=== PATIENT | female | born 1995 | race Caucasian/White ===

== ENCOUNTER 2018-04-26 10:12 | Emergency (ER) | payer MEDICAID, OTHER ==
[~2018-04-26] VITALS: Ht 165.1 cm; Wt 50.0 kg
[2018-04-26 10:29] VITALS: BP 123/78
[2018-04-26] MEDS ORDERED: HYDR-3165 PO (10:55)
--- NOTE | 2018-04-26 10:58 | PHYS DOC ---
Past History Past Medical History: Depression Past Surgical History: No Surgical History Alcohol Use: None Drug Use: None Adult General Chief Complaint Chief Complaint: UPPER EXTREMITY PAIN HPI HPI 23-year-old healthy female presents with right hand pain. She states she punched a wall with the right hand last night. She states she has pain over her right fifth knuckle. She denies any other injuries.[] Review of Systems Review of Systems Constitutional: Denies fever or chills [] Eyes: Denies change in visual acuity, redness, or eye pain [] HENT: Denies nasal congestion or sore throat [] Respiratory: Denies cough or shortness of breath [] Cardiovascular: No additional information not addressed in HPI [] GI: Denies abdominal pain, nausea, vomiting, bloody stools or diarrhea [] : Denies dysuria or hematuria [] Musculoskeletal: Per history of present illness[] Integument: Denies rash or skin lesions [] Neurologic: Denies headache, focal weakness or sensory changes [] Endocrine: Denies polyuria or polydipsia [] All other systems were reviewed and found to be within normal limits, except as documented in this note. Allergies Allergies Allergies Coded Allergies Type Severity Reaction Last Updated Verified ibuprofen Allergy Intermediate 04/26/18 Yes Physical Exam Physical Exam Constitutional: Well developed, well nourished, mild to moderate distress, non- toxic appearance. [] HENT: Normocephalic, atraumatic, bilateral external ears normal, oropharynx moist, no oral exudates, nose normal. [] Eyes: PERRLA, EOMI, conjunctiva normal, no discharge. [] Neck: Normal range of motion, no tenderness, supple, no stridor. [] Cardiovascular:Heart rate regular rhythm, no murmur [] Lungs & Thorax: Bilateral breath sounds clear to auscultation [] Abdomen: Bowel sounds normal, soft, no tenderness, no masses, no pulsatile masses. [] Skin: Warm, dry, no erythema, no rash. [] Back: No tenderness, no CVA tenderness. [] Extremities: Tenderness over the distal aspect of the right fifth metacarpal with deformity consistent with a boxer's fracture. [] Neurologic: Alert and oriented X 3, normal motor function, normal sensory function, no focal deficits noted. [] Psychologic: Depressed affect. [] Current Patient Data Vital Signs Vital Signs Date Time Temp Pulse Resp B/P (MAP) Pulse Ox O2 Delivery O2 Flow Rate FiO2 04/26/18 10:29 98.2 65 18 100 Room Air EKG EKG [] Radiology/Procedures Radiology/Procedures [] Impressions: Right hand x-ray: Boxer's fracture as interpreted by me Course & Med Decision Making Course & Med Decision Making Pertinent Labs and Imaging studies reviewed. (See chart for details) [ED course/procedure: Evaluation reveals a 23-year-old female with right boxer' s fracture. An ulnar gutter OCL splint was placed from the distal aspect of the right forearm distal to her right MCP. After the splint was placed the patient remained neurovascularly intact as checked by me.] Dragon Disclaimer Dragon Disclaimer This electronic medical record was generated, in whole or in part, using a voice recognition dictation system. Departure Departure: Impression: Primary Impression: Gonsalo fracture Disposition: HOME, SELF-CARE Condition: STABLE Referrals: PCP,TALISHA (PCP) BOBBI ACOSTA MD Call Dr. Acosta to arrange outpatient follow-up Patient Instructions: Hand Fracture, Fifth Metacarpal Additional Instructions: Very important that you follow with an orthopedic surgeon in the next week. Take pain medicine as prescribed. Return to the emergency department with any new or concerning symptoms. Please wear your splint until you're seen by the orthopedic surgeon. Scripts Hydrocodone Bit/Acetaminophen (NORCO 5-325 TABLET) 1 Each Tablet 1-2 TAB PO Q4-6HRS for PAIN, #20 TAB Prov: ARIN JACOBS DO 04/26/18 Problem Qualifiers Primary Impression: Boxers fracture Encounter type: initial encounter Fracture type: closed Qualified Codes: S62.339A - Displaced fracture of neck of unspecified metacarpal bone, initial encounter for closed fracture ARIN JACOBS DO Apr 26, 2018 10:58
--- NOTE | 2018-04-26 10:59 | RAD ---
Three-view right hand dated 04/26/2018. No comparison available. Clinical data indication: Pain after injury. FINDINGS: 3 views right hand show transverse fracture at the distal one third shaft fifth metacarpal with mild volar angulation at the fracture site. Osseous structures are otherwise intact. Alignment otherwise anatomic. No periostitis or bone destruction. IMPRESSION: Transverse fracture at the distal one third shaft fifth metacarpal. Electronically signed by: Luis Morley MD (04/26/2018 10:56 AM) [id number]
[2018-04-26] MEDS ORDERED: oxyCODONE/APAP 5/325 1 TAB TABLET PO ONE (11:20)
== END 2018-04-26 11:32 | disposition home or self-care (01) ==
LOC: ER 10:12
DX: S62.326A Displaced fracture of shaft of fifth metacarpal bone, right hand, initial encounter for closed fracture (principal); F32.9 Major depressive disorder, single episode, unspecified; Z88.6 Allergy status to analgesic agent; W22.01XA Walked into wall, initial encounter; Y93.89 Activity, other specified; Y92.89 Other specified places as the place of occurrence of the external cause; Y99.8 Other external cause status
CPT/HCPCS: 29125; 73130; 99283

== ENCOUNTER 2019-08-01 08:57 | Emergency (ER) | payer OTHER ==
[~2019-08-01] VITALS: Ht 165.1 cm; Wt 44.8 kg
[~2019-08-01 08:57] MED LIST: HYDR-3165 PO
[2019-08-01] MEDS ORDERED: IV NORMAL SALINE 1,000ML 1,000 ML IV ONE (09:30)
[2019-08-01] MEDS ORDERED: KETOROLAC 30 MG/ML VIAL. IVP ONE (09:30)
--- NOTE | 2019-08-01 09:30 | PHYS DOC ---
Past History Past Medical History: Depression, Ovarian Cyst Past Surgical History: No Surgical History Alcohol Use: None Drug Use: None General Adult EDM: Chief Complaint: ABDOMINAL PAIN HPI: HPI: 24-year-old female presents with left lower quadrant abdominal pain. The patient has been having increasing pain for the last 3 days. Today is much worse 08/24 so she decided to come to the hospital. The pain is a deep cramping sensation. Nothing seems to make it better or worse. She first went to her primary care physician Pap smear did not find any abnormalities. Patient was recently seen in another ER and was diagnosed as having ruptured cysts from the ovaries and presumed PID. She was treated with antibiotics. This was about 1 month ago. She was never contacted with confirmation of STD. She is sexually active. 4 months ago she switched from Depo-Provera shots to oral control. Her discomfort did not correlate with that change. She denies fever chills. She denies change in vaginal discharge. Review of Systems: Review of Systems: Constitutional: Denies fever or chills Eyes: Denies change in visual acuity HENT: Denies nasal congestion or sore throat Respiratory: Denies cough or shortness of breath Cardiovascular: Denies chest pain or edema GI: LLQ abdominal pain. Denies nausea, vomiting, bloody stools or diarrhea : Denies dysuria Musculoskeletal: Denies back pain or joint pain Integument: Denies rash Neurologic: Denies headache, focal weakness or sensory changes Endocrine: Denies polyuria or polydipsia Lymphatic: Denies swollen glands Psychiatric: Denies depression or anxiety Heart Score: Risk Factors: Risk Factors: DM, Current or recent (<one month) smoker, HTN, HLP, family history of CAD, obesity. Risk Scores: Score 0 - 3: 2.5% MACE over next 6 weeks - Discharge Home Score 4 - 6: 20.3% MACE over next 6 weeks - Admit for Clinical Observation Score 7 - 10: 72.7% MACE over next 6 weeks - Early Invasive Strategies Allergies: Allergies: Allergies Coded Allergies Type Severity Reaction Last Updated Verified No Known Drug Allergies 08/01/19 No Physical Exam: PE: Constitutional: Well developed, thin, no acute distress, non-toxic appearance. [] HENT: Normocephalic, atraumatic, bilateral external ears normal, oropharynx moist, no oral exudates, nose normal. [] Eyes: PERRLA, EOMI, conjunctiva normal, no discharge. [] Neck: Normal range of motion, no tenderness, supple, no stridor. [] Cardiovascular: Heart rate regular rhythm, no murmur [] Lungs & Thorax: Bilateral breath sounds clear to auscultation [] Abdomen: Bowel sounds normal, soft, no tenderness, no masses, no pulsatile masses. [] Skin: Warm, dry, no erythema, no rash. [] Back: No tenderness, no CVA tenderness. [] Extremities: No tenderness, no cyanosis, no clubbing, ROM intact, no edema. [] Neurologic: Alert and oriented X 3, normal motor function, normal sensory function, no focal deficits noted. [] Psychologic: Affect normal, judgement normal, mood normal. [] Current Patient Data: Vital Signs: Vital Signs Date Time Temp Pulse Resp B/P (MAP) Pulse Ox O2 Delivery O2 Flow Rate FiO2 08/01/19 09:05 98.0 73 18 117/68 (84) 99 Room Air EKG: EKG: [] Radiology/Procedures: Radiology/Procedures: [] Impressions: US PELVIS History: Left lower quadrant abdominal pain, history of cysts Comparison: None. Findings: Multiple transabdominal sonographic images of the pelvis are submitted. Pelvic structures are not well seen due to bowel gas. No significant free fluid is demonstrated. Patient declined transvaginal imaging. Impression: 1. Pelvic structures are not seen due to bowel gas. Electronically signed by: Taniya Galarza MD (08/01/2019 9:50 AM) [id number] DICTATED AND SIGNED BY: TANIYA GALARZA MD DATE: 08/01/19 0950 CC: RAMESH WOODWARD DO; PCP,NO ~ CT abdomen and pelvis with contrast History: Left lower quadrant abdominal pain Technique: After the administration of intravenous contrast, CT imaging was performed of the abdomen and pelvis. No oral contrast was given. Multiplanar images are reviewed. Exposure: One or more of the following individualized dose reduction techniques were utilized for this examination: 1. Automated exposure control 2. Adjustment of the mA and/or kV according to patient size 3. Use of iterative reconstruction technique. Comparison: June 29, 2004 Findings: There is some motion. There is no significant abnormality of the visualized lung bases. There is no significant abnormality of the liver, pancreas, adrenal glands. Heterogeneity of the pancreas is probably due to differential in perfusion during exam. Both kidneys enhance without hydronephrosis. Gallbladder is present without obvious intraluminal abnormality by CT. Accurate evaluation of bowel is limited without oral contrast. There is no significant inflammatory change adjacent to the bowel. Bowel is not significantly dilated. There is no free air. No significant free fluid is identified. Urinary bladder somewhat distended. There is nonspecific heterogeneity of the uterus which may be related to an arcuate uterus. At least a segment of normal caliber appendix is believed to be visualized. Some questionable mild hazy and strandy density about the distal descending and proximal sigmoid colon not associated with appreciable colonic wall thickening. Impression: 1. There is probable mild hazy and strandy change of the fat about the proximal sigmoid and distal descending colon although not associated with significant colonic wall thickening. Given primary fat involvement, sequela of epiploic appendicitis would be a consideration versus related to other nonspecific inflammatory change. 2. Urinary bladder is somewhat distended. Electronically signed by: Taniya Galarza MD (08/01/2019 11:44 AM) [id number] DICTATED AND SIGNED BY: TANIYA GALARZA MD DATE: 08/01/19 1144 CC: RAMESH WOODWARD DO; PCP,NO ~ Course & Med Decision Making: Course & Med Decision Making Pertinent Labs and Imaging studies reviewed. (See chart for details) The patient's labs are unremarkable. Her pelvic ultrasound was not helpful due to overlying bowel gas and refusal of transvaginal. Urinalysis is negative for infection. I have given her Toradol which is not controlling her pain. I will add a CT of the abdomen and pelvis and give her 2 [address] The [address] of the abdomen pelvis shows possible epiploic appendicitis. I believe the report should say appendagitis. I will treat her with cefoxitin 2 g IV in the ER in case it is infective versus ischemic.. I will also discharge her with Odell 5/325. This should treat the patient's potential infection and symptoms. She is stable for discharge at this time. [] Marcus Disclaimer: Marcus Disclaimer: This electronic medical record was generated, in whole or in part, using a voice recognition dictation system. Departure Departure: Impression: Primary Impression: Appendicitis epiploica Disposition: 01 HOME/RESIDENCE PRIOR TO ADM Condition: STABLE Referrals: PCP,NO (PCP) Patient Instructions: Abdominal Pain, Women Scripts Hydrocodone Bit/Acetaminophen (NORCO 5-325 TABLET) 1 Each Tablet 1 TAB PO PRN Q6HRS PRN for PAIN, #14 TAB 0 Refills Prov: RAMESH WOODWARD DO 08/01/19 Justification of Admission: Justification of Admission: Justification of Admission Dx: N/A RAMESH WOODWARD DO Aug 01, 2019 09:30
[2019-08-01 09:41] LABS: BASO # 0.1 x10^3/uL (0.0-0.2); BASO % 1 % (0-3); EOS # 0.4 x10^3/uL (0.0-0.7); EOS % 4 % (0-3); HEMATOCRIT 39.6 % (36.0-47.0); HEMOGLOBIN 13.7 g/dL (12.0-15.5); LYMPH # 1.9 x10^3/uL (1.0-4.8); LYMPH % 20 % (24-48); MEAN CORPUSCULAR HEMOGLOBIN 33 pg (25-35); MEAN CORPUSCULAR HGB CONC 35 g/dL (31-37); MEAN CORPUSCULAR VOLUME 95 fL (79-100); MONO # 0.6 x10^3/uL (0.0-1.1); MONO % 6 % (0-9); NEUT # 6.4 x10^3uL (1.8-7.7); NEUT % 69 % (31-73); PLATELET COUNT 265 x10^3/uL (140-400); RED BLOOD COUNT 4.16 x10^6/uL (3.50-5.40); RED CELL DISTRIBUTION WIDTH 12.2 % (11.5-14.5); WHITE BLOOD COUNT 9.3 x10^3/uL (4.0-11.0)
[2019-08-01 09:52] LABS: CALCIUM 8.9 mg/dL (8.5-10.1); CREATININE 0.9 mg/dL (0.6-1.0); GFR 76.9; POTASSIUM 4.2 mmol/L (3.5-5.1)
--- NOTE | 2019-08-01 09:52 | RAD ---
US PELVIS History: Left lower quadrant abdominal pain, history of cysts Comparison: None. Findings: Multiple transabdominal sonographic images of the pelvis are submitted. Pelvic structures are not well seen due to bowel gas. No significant free fluid is demonstrated. Patient declined transvaginal imaging. Impression: 1. Pelvic structures are not seen due to bowel gas. Electronically signed by: Enzo Morin MD (08/01/2019 9:50 AM) [id number]
[2019-08-01 09:56] LABS: BACTERIA,URINE 0 /HPF (0-FEW); BILIRUBIN,URINE NEG (NEG); CLARITY,URINE CLEAR; COLOR,URINE YELLOW; GLUCOSE,URINE NEG (NEG); NITRITE,URINE NEG (NEG); SQUAMOUS EPITHELIAL CELL,UR MOD /LPF; UROBILINOGEN,URINE 0.2 mg/dL (0.2 mg/dL)
[2019-08-01 09:57] LABS: ALBUMIN 4.1 g/dL (3.4-5.0); ALBUMIN/GLOBULIN RATIO 1.2 (1.0-1.7); TOTAL BILIRUBIN 0.3 mg/dL (0.2-1.0); TOTAL PROTEIN 7.6 g/dL (6.4-8.2)
[2019-08-01] MEDS ORDERED: ONDANSETRON PF 4 MG/2 ML VIAL. IVP ONE (10:15)
[2019-08-01] MEDS ORDERED: MORPHINE SULFATE 2 MG/ML DISP.SYRIN. IV ONE ×2 (10:15→12:45)
[2019-08-01] MEDS ORDERED: IOHEXOL 300 MG/ML 75 ML VIAL. IV ONE (10:45)
--- NOTE | 2019-08-01 11:47 | RAD ---
CT abdomen and pelvis with contrast History: Left lower quadrant abdominal pain Technique: After the administration of intravenous contrast, CT imaging was performed of the abdomen and pelvis. No oral contrast was given. Multiplanar images are reviewed. Exposure: One or more of the following individualized dose reduction techniques were utilized for this examination: 1. Automated exposure control 2. Adjustment of the mA and/or kV according to patient size 3. Use of iterative reconstruction technique. Comparison: June 29, 2004 Findings: There is some motion. There is no significant abnormality of the visualized lung bases. There is no significant abnormality of the liver, pancreas, adrenal glands. Heterogeneity of the pancreas is probably due to differential in perfusion during exam. Both kidneys enhance without hydronephrosis. Gallbladder is present without obvious intraluminal abnormality by CT. Accurate evaluation of bowel is limited without oral contrast. There is no significant inflammatory change adjacent to the bowel. Bowel is not significantly dilated. There is no free air. No significant free fluid is identified. Urinary bladder somewhat distended. There is nonspecific heterogeneity of the uterus which may be related to an arcuate uterus. At least a segment of normal caliber appendix is believed to be visualized. Some questionable mild hazy and strandy density about the distal descending and proximal sigmoid colon not associated with appreciable colonic wall thickening. Impression: 1. There is probable mild hazy and strandy change of the fat about the proximal sigmoid and distal descending colon although not associated with significant colonic wall thickening. Given primary fat involvement, sequela of epiploic appendicitis would be a consideration versus related to other nonspecific inflammatory change. 2. Urinary bladder is somewhat distended. Electronically signed by: Enzo Morin MD (08/01/2019 11:44 AM) [id number]
[2019-08-01] MEDS ORDERED: IV NORMAL SALINE 100ML 100 ML ONE (12:48)
[2019-08-01] MEDS ORDERED: HYDR-3165 PO (13:20)
[2019-08-01 13:28] VITALS: BP 108/65
== END 2019-08-01 13:44 | disposition home or self-care (01) ==
LOC: ER 08:57
DX: K36 Other appendicitis (principal)
CPT/HCPCS: 36415; 74177; 76856; 80053; 81001; 85025; 96365; 96375; 96376; 99285; J0694; J1885; J2270; J2405; Q9967; 96374; J7030

== ENCOUNTER 2020-06-16 11:57 | Emergency (ER) | payer SELFPAY ==
[~2020-06-16] VITALS: Ht 167.6 cm; Wt 44.0 kg
[2020-06-16 12:20] VITALS: BP 108/73
[2020-06-16] MEDS ORDERED: ONDANSETRON PF 4 MG/2 ML VIAL. ONE (12:44)
[2020-06-16] MEDS ORDERED: IV NORMAL SALINE 1,000ML 1,000 ML IV ONE (12:45)
[2020-06-16] MEDS ORDERED: ONDANSETRON PF 4 MG/2 ML VIAL. IVP ONE (12:45)
--- NOTE | 2020-06-16 13:09 | PHYS DOC ---
Past History Past Medical History: Other Past Surgical History: No Surgical History Alcohol Use: None Drug Use: None Adult General Chief Complaint Chief Complaint: NAUSEA/VOMITING/DIARRHEA HPI HPI Patient is a female with no significant medical history who presents today complaining of moderate epigastric abdominal pain with nausea vomiting and diarrhea that began at 6 AM this morning. Patient is restless, requesting IV fluids. She states she feels dehydrated. Denies any use of alcohol drugs. Denies any hematemesis or melena. Denies any chance she is . She states she did not get a Covid vaccine and does not want to be tested for COVID- 19. Denies anything specifically exacerbating or relieving her pain. Review of Systems Review of Systems Constitutional: Denies fever or chills [] Eyes: Denies change in visual acuity, redness, or eye pain [] HENT: Denies nasal congestion or sore throat [] Respiratory: Denies cough or shortness of breath [] Cardiovascular: No additional information not addressed in HPI [] GI: Reports epigastric abdominal pain with nausea vomiting and diarrhea : Denies dysuria or hematuria [] Musculoskeletal: Denies back pain or joint pain [] Integument: Denies rash or skin lesions [] Neurologic: Denies headache, focal weakness or sensory changes [] All other systems were reviewed and found to be within normal limits, except as documented in this note. Current Medications Current Medications Current Medications Medications (Trade) Dose Ordered Sig/[facility] Start Time Stop Time Status Last Admin Dose Admin Ondansetron HCl (Zofran) 4 mg 1X ONCE 06/16/20 12:45 06/16/20 12:50 DC 06/16/20 12:49 4 MG Sodium Chloride 1,000 ml @ 1,000 mls/hr 1X ONCE 06/16/20 12:45 06/16/20 13:44 06/16/20 12:48 1,000 MLS/HR Allergies Allergies Allergies Coded Allergies Type Severity Reaction Last Updated Verified No Known Drug Allergies 08/01/19 No Physical Exam Physical Exam Constitutional: Thin appearing patient, no acute distress, non-toxic appearance. [] HENT: Normocephalic, atraumatic, bilateral external ears normal, oropharynx moist, no oral exudates, nose normal. [] Eyes: PERRLA, EOMI, conjunctiva normal, no discharge. [] Neck: Normal range of motion, no tenderness, supple, no stridor. [] Cardiovascular:Heart rate regular rhythm, no murmur [] Lungs & Thorax: Bilateral breath sounds clear to auscultation [] Abdomen: Bowel sounds normal, soft, slight epigastric tenderness, no right upper quadrant or right lower quadrant tenderness, negative Benito sign, negative psoas sign, negative obturator sign, negative Rovsing sign, no guarding, no rebound pain or tenderness, no masses, no pulsatile masses. [] Skin: Warm, dry, no erythema, no rash. [] Back: No tenderness, no CVA tenderness. [] Extremities: No tenderness, no cyanosis, no clubbing, ROM intact, no edema. [] Neurologic: Alert and oriented X 3, normal motor function, normal sensory function, no focal deficits noted. [] Psychologic: Flat affect, restless Current Patient Data Vital Signs Vital Signs Date Time Temp Pulse Resp B/P (MAP) Pulse Ox O2 Delivery O2 Flow Rate FiO2 06/16/ 12:20 97.3 66 22 108/73 (85) 100 EKG EKG [] Radiology/Procedures Radiology/Procedures [] Heart Score C/O Chest Pain: N/A Risk Factors: Risk Factors: DM, Current or recent (<one month) smoker, HTN, HLP, family history of CAD, obesity. Risk Scores: Risk Factors: DM, Current or recent (<one month) smoker, HTN, HLP, family history of CAD, obesity. Course & Med Decision Making Course & Med Decision Making Pertinent Labs and Imaging studies reviewed. (See chart for details) This is a 25-year-old female patient presented to the ED today with vomiting and diarrhea, symptoms began today at 6 AM Negative urine hCG, UA negative for infection, CBC with a normal WBC, normal hemoglobin and hematocrit, CMP with glucose of 140 anion gap of 17, no history of diabetes, this is likely dehydration. Patient was given IV fluids and nausea medicine. She was discharged. She feels better. Provided return precautions. Dragon Disclaimer Dragon Disclaimer This electronic medical record was generated, in whole or in part, using a voice recognition dictation system. Departure Departure: Impression: Primary Impression: Nausea and vomiting Additional Impressions: Diarrhea Dehydration Disposition: HOME / SELF CARE / HOMELESS Condition: STABLE Referrals: EDI MORTENSEN (PCP) follow up with your doctor in 1-2 weeks Patient Instructions: Dehydration, Adult, Diarrhea, Nausea and Vomiting, [id number] Additional Instructions: You were evaluated in the emergency room for nausea vomiting and diarrhea. We encourage you to push fluids, maintain good antigen, follow-up with your doctor next Scripts Metoclopramide Hcl (REGLAN) 10 Mg Tablet 1 TAB PO TID, #24 TAB 0 Refills before food and bedtime Prov: LESLY PABLO APRN 06/16/20 Problem Qualifiers Primary Impression: Nausea and vomiting Vomiting type: unspecified Vomiting Intractability: unspecified Qualified Codes: R11.2 - Nausea with vomiting, unspecified Additional Impressions: Diarrhea Diarrhea type: unspecified type Qualified Codes: R19.7 - Diarrhea, unspecified LESLY PABLO APRN June 16, 2020 13:09
[2020-06-16 13:12] LABS: CREATININE 0.9 mg/dL (0.6-1.0); GFR 76.3; POTASSIUM 3.5 mmol/L (3.5-5.1)
[2020-06-16 13:14] LABS: BASO # 0.1 x10^3/uL (0.0-0.2); BASO % 1 % (0-3); EOS % 0 % (0-3); HEMATOCRIT 42.3 % (36.0-47.0); HEMOGLOBIN 14.4 g/dL (12.0-15.5); LYMPH % 18 % (24-48); MEAN CORPUSCULAR HEMOGLOBIN 33 pg (25-35); MEAN CORPUSCULAR HGB CONC 34 g/dL (31-37); MEAN CORPUSCULAR VOLUME 96 fL (79-100); MONO # 0.6 x10^3/uL (0.0-1.1); MONO % 5 % (0-9); NEUT # 8.3 x10^3uL (1.8-7.7); NEUT % 76 % (31-73); PLATELET COUNT 300 x10^3/uL (140-400); RED BLOOD COUNT 4.39 x10^6/uL (3.50-5.40)
[2020-06-16 13:17] LABS: ALBUMIN 4.7 g/dL (3.4-5.0); ALBUMIN/GLOBULIN RATIO 1.3 (1.0-1.7); TOTAL BILIRUBIN 0.5 mg/dL (0.2-1.0); TOTAL PROTEIN 8.3 g/dL (6.4-8.2)
[2020-06-16] MEDS ORDERED: HALOPERIDOL LACT 5 MG/ML VIAL. IVP ONE (13:30)
[2020-06-16 13:42] LABS: CALCIUM 10.1 mg/dL (8.5-10.1)
[2020-06-16] MEDS ORDERED: METO10TA81 PO (15:01)
[2020-06-16 15:02] LABS: AMPHETAMINE/METHAMPHETAMINE NEG (NEG); BARBITURATES NEG (NEG); BENZODIAZEPINES NEG (NEG); CANNABINOIDS POS (NEG); COCAINE NEG (NEG); METHADONE NEG (NEG); OPIATES NEG (NEG); PHENCYCLIDINE NEG (NEG)
[2020-06-16 15:08] LABS: BACTERIA,URINE 0 /HPF (0-FEW); BILIRUBIN,URINE NEG (NEG); CLARITY,URINE CLEAR; COLOR,URINE AMBER; GLUCOSE,URINE NEG (NEG); NITRITE,URINE NEG (NEG); RBC,URINE 0 /HPF (0-2); SQUAMOUS EPITHELIAL CELL,UR MANY /LPF; UROBILINOGEN,URINE 0.2 mg/dL (0.2 mg/dL); WBC,URINE 0 /HPF (0-4)
== END 2020-06-16 15:07 | disposition home or self-care (01) ==
LOC: ER 11:57
DX: E86.0 Dehydration (principal); R11.2 Nausea with vomiting, unspecified; R19.7 Diarrhea, unspecified; R10.13 Epigastric pain
CPT/HCPCS: 36415; 80053; 80307; 81001; 81025; 83690; 85025; 96361; 96374; 96375; 99284; G0480; J1630; J2405; J7030